=== PATIENT | female | born 1995 | race Caucasian/White ===

== ENCOUNTER 2018-01-30 08:29 | Day surgery (SDC) | payer OTHER ==
[~2018-01-30 08:29] MED LIST: BUPIVACAINE 0.5% (SDV) 30 ML, morphine SULFATE (PF) 8 MG, EPINEPHrine 0.3 MG, KETOROLAC... IRR; TRANEXAMIC ACID 1,000 MG in DEXTROSE 5% 100 ML IVPB
[2018-01-30] MEDS: traMADol 50 MG TAB PO (10:33)
[2018-01-30] MEDS: DEXAMETHASONE 1 MG TAB PO (10:33)
[2018-01-30] MEDS: GABAPENTIN 300 MG CAP PO (10:33)
[2018-01-30] MEDS ORDERED: FENTAnyl 50 MCG/ML VIAL (11:34)
[2018-01-30] MEDS ORDERED: MIDAZOLAM 1 MG/ML 2 ML INJ (11:34)
[2018-01-30] MEDS ORDERED: ONDANSETRON 4 MG INJ (13:30)
[2018-01-30] MEDS ORDERED: PROPOFOL 20 ML (13:30)
[2018-01-30] MEDS ORDERED: CEFAZOLIN 1 GM INJ (13:30)
[2018-01-30] MEDS ORDERED: LIDOCAINE 2% (SDV) 5 ML INJ (13:30)
[2018-01-30] MEDS ORDERED: MEPERIDINE 25 MG INJ IV (14:00)
[2018-01-30] MEDS ORDERED: METOCLOPRAMIDE 10 MG INJ IV (14:00)
[2018-01-30] MEDS ORDERED: DIPHENHYDRAMINE 50 MG INJ IV (14:00)
[2018-01-30] MEDS ORDERED: FENTAnyl 50 MCG/ML VIAL IV (14:00)
[2018-01-30] MEDS: HYDROmorphONE 1 MG/5 ML IV SYRINGE IV ×3 (14:05→14:24)
[2018-01-30] MEDS: ONDANSETRON 4 MG INJ IV (14:20)
== END 2018-01-30 16:12 | disposition home or self-care (01) ==
LOC: SDS 08:29
DX: S73.191A Other sprain of right hip, initial encounter (principal); X58.XXXA Exposure to other specified factors, initial encounter; M24.051 Loose body in right hip; M16.51 Unilateral post-traumatic osteoarthritis, right hip; E66.9 Obesity, unspecified; Z68.32 Body mass index [BMI] 32.0-32.9, adult
CPT/HCPCS: 29862; 73530; 84703; 88304; 88311